=== PATIENT | male | born 1985 | race Caucasian/White ===

== ENCOUNTER → 2019-11-14 | Outpatient (REF) | payer OTHER ==
[2019-11-14 14:01] LABS: HEMOGLOBIN A1c 6.3 %
[2019-11-14 14:06] LABS: ALBUMIN 3.8 GM/DL (3.2-5.2); ALT/SGPT 45 U/L (12-78); BILIRUBIN,TOTAL 0.5 MG/DL (0.2-1.0); BLOOD UREA NITROGEN 15 MG/DL (7-18); CALCIUM LEVEL 9.8 MG/DL (8.5-10.1); CARBON DIOXIDE LEVEL 28 MEQ/L (21-32); CHLORIDE LEVEL 104 MEQ/L (98-107); CHOLESTEROL LEVEL 215 MG/DL (<200); CHOLESTEROL RISK RATIO 7.166 (<5); CREATININE FOR GFR 0.96 MG/DL (0.70-1.30); GLOMERULAR FILTRATION RATE > 60.0 (>60); GLUCOSE, FASTING 100 MG/DL (70-100); HDL CHOLESTEROL 30 MG/DL (>40); LDL CHOLESTEROL 162 MG/DL (<100); NON-HDL-C 185 MG/DL; POTASSIUM SERUM 4.2 MEQ/L (3.5-5.1); SODIUM LEVEL 140 MEQ/L (136-145); TOTAL PROTEIN 8.1 GM/DL (6.4-8.2); TRIGLYCERIDES LEVEL 116 MG/DL (<150)
== END ==
LOC: M SFHCPLAZ 11:37
PROVIDERS: ATTEND Nurse Practitioner Adult Health
DX: Z00.00 Encounter for general adult medical examination without abnormal findings (principal); Z13.220 Encounter for screening for lipoid disorders; Z83.3 Family history of diabetes mellitus

== ENCOUNTER → 2020-11-17 | Outpatient (REF) | payer OTHER ==
[2020-11-17 16:29] LABS: HEMATOCRIT 45.4 % (42.0-52.0); MEAN CORPUSCULAR HEMOGLOBIN 27.8 pg (27.0-33.0); MEAN CORPUSCULAR HGB CONC 30.8 g/dl (32.0-36.5); MEAN CORPUSCULAR VOLUME 90.1 fl (80.0-96.0); PLATELET COUNT, AUTOMATED 444 10^3/uL (150-450); RED BLOOD COUNT 5.04 10^6/uL (4.30-6.10); WHITE BLOOD COUNT 8.1 10^3/uL (4.0-10.0)
[2020-11-17 16:43] LABS: ALBUMIN 3.7 GM/DL (3.2-5.2); ALT/SGPT 47 U/L (12-78); BILIRUBIN,TOTAL 0.4 MG/DL (0.2-1.0); BLOOD UREA NITROGEN 13 MG/DL (7-18); CALCIUM LEVEL 9.3 MG/DL (8.5-10.1); CARBON DIOXIDE LEVEL 31 MEQ/L (21-32); CHLORIDE LEVEL 104 MEQ/L (98-107); CHOLESTEROL LEVEL 241 MG/DL (<200); CHOLESTEROL RISK RATIO 7.088 (<5); CREATININE FOR GFR 1.03 MG/DL (0.70-1.30); GLOMERULAR FILTRATION RATE > 60.0 (>60); GLUCOSE, FASTING 115 MG/DL (70-100); HDL CHOLESTEROL 34 MG/DL (>40); LDL CHOLESTEROL 166 MG/DL (<100); NON-HDL-C 207 MG/DL; POTASSIUM SERUM 4.4 MEQ/L (3.5-5.1); SODIUM LEVEL 140 MEQ/L (136-145); TOTAL PROTEIN 7.7 GM/DL (6.4-8.2); TRIGLYCERIDES LEVEL 203 MG/DL (<150)
[2020-11-17 17:36] LABS: HEMOGLOBIN A1c 5.7 %
== END ==
LOC: M SFHCPLAZ 10:39
PROVIDERS: ATTEND Nurse Practitioner Adult Health
DX: Z00.00 Encounter for general adult medical examination without abnormal findings (principal); Z83.3 Family history of diabetes mellitus; Z13.220 Encounter for screening for lipoid disorders

== ENCOUNTER → 2021-02-21 | Outpatient (CLI) | payer BC, OTHER ==
--- NOTE | 2021-02-22 17:38 | SLEEPCENT ---
NOCTURNAL POLYSOMNOGRAPHY DATE: 02/21/2021 ORDERED BY: GUDELIA Negro Nocturnal polysomnography was performed for evaluation of sleep physiology in this patient with a history of snoring and nonrestorative sleep. 8 hours and 30 minutes of data were reviewed. There were 148 minutes of sleep identified. Sleep latency was prolonged at 119 minutes. The patient did not achieve REM sleep. Overall sleep architecture was poor with an efficiency of only 29.4%. The electrocardiogram showed a sinus rhythm with an average heart rate of 60 beats per minute; rate range 40 to 100. EEG showed fairly normal waveforms for wake and sleep. There were 176 respiratory events identified of 10 seconds in duration or greater for an apnea-hypopnea index of 71.4. The events were both obstructive and mixed, 127 of 176 events were mixed or central in character. The events were not exclusive to sleep stage nor body posture. They were associated with oxygen desaturations into the 70s. Having clear established the presence of obstructive sleep apnea syndrome early in the night, testing was stopped shortly after 1 a.m. for the application of pressure therapy. The patient was fit with a ResMed AirFit F20 full face mask of medium size, 4 cm of water pressure were applied to the circuit, and the lights were extinguished. Throughout the remaining hours of testing, pressure titration was performed. Various pressures were attempted, but no palliative pressure was identified. A brief trial of BiLevel pressure was successful; however, the patient awoke thereafter and was unable to reestablish sleep sufficient to identify an optimal palliative pressure. IMPRESSION: Severe complex obstructive and central sleep apnea syndrome (G47.31, G47.33), apnea-hypopnea index 71.4 (127 of 176 events central and mixed). RECOMMENDATION: The patient should be encouraged to return to [facility] at his convenience for the titration of pressure therapy. Given the complex nature of the patient's apnea, it is likely that a BiLevel device and possibly a backup rate may be necessary to achieve palliative pressure.
== END ==
LOC: M SLEEP 20:00
PROVIDERS: ATTEND Physician Assistant
DX: G47.33 Obstructive sleep apnea (adult) (pediatric) (principal); G47.31 Primary central sleep apnea

== ENCOUNTER → 2021-03-17 | Outpatient (CLI) | payer BC, OTHER ==
--- NOTE | 2021-03-21 15:25 | SLEEPCENT ---
NOCTURNAL POLYSOMNOGRAPHY CPAP TITRATION DATE: 03/17/2021 ORDERED BY: GUDELIA Negro Nocturnal polysomnography was performed for the titration of pressure therapy in this patient with complex obstructive sleep apnea syndrome with apnea-hypopnea index of 71.4. For testing a ResMed AirFit F20 full face mask of large size was used, 4 cm of water pressure were applied to the circuit, and the lights were extinguished. 8 hours and 9 minutes of data were reviewed. There were 392 minutes of sleep identified. Sleep latency was mildly prolonged at 40 minutes. REM latency was mildly prolonged at 132 minutes. Sleep architecture improved with optimal pressure therapy and there were three REM cycles noted. Overall sleep efficiency was 81.5%. The electrocardiogram showed a sinus rhythm with an average heart rate of 72 beats per minute. EEG showed normal waveforms for wake and sleep. Respiratory events were fully palliated with CPAP at a pressure of 10 and some limb activity noted early in the study improved after the optimal pressure therapy was applied. Limb movement arousal index on this occasion was 4.1. IMPRESSION: Obstructive sleep apnea syndrome (G47.33). RECOMMENDATION: Nightly use of pressure therapy 10 cm of water.
== END ==
LOC: M SLEEP 20:00
PROVIDERS: ATTEND Physician Assistant
DX: G47.33 Obstructive sleep apnea (adult) (pediatric) (principal)

== ENCOUNTER → 2021-07-13 | Outpatient (REF) | payer OTHER ==
[2021-07-13 16:56] LABS: ALBUMIN 3.4 GM/DL (3.2-5.2); ALT/SGPT 34 U/L (12-78); BILIRUBIN,TOTAL 0.4 MG/DL (0.2-1.0); BLOOD UREA NITROGEN 17 MG/DL (7-18); CALCIUM LEVEL 9.1 MG/DL (8.5-10.1); CARBON DIOXIDE LEVEL 31 MEQ/L (21-32); CHLORIDE LEVEL 106 MEQ/L (98-107); CHOLESTEROL LEVEL 159 MG/DL (<200); CHOLESTEROL RISK RATIO 5.482 (<5); CREATININE FOR GFR 0.84 MG/DL (0.70-1.30); GLOMERULAR FILTRATION RATE > 60.0 (>60); GLUCOSE, FASTING 109 MG/DL (70-100); HDL CHOLESTEROL 29 MG/DL (>40); LDL CHOLESTEROL 105 MG/DL (<100); NON-HDL-C 130 MG/DL; POTASSIUM SERUM 4.7 MEQ/L (3.5-5.1); SODIUM LEVEL 141 MEQ/L (136-145); TOTAL PROTEIN 7.3 GM/DL (6.4-8.2); TRIGLYCERIDES LEVEL 125 MG/DL (<150)
== END ==
LOC: M SFHCCLAY 10:51
PROVIDERS: ATTEND Nurse Practitioner Adult Health
DX: E74.39 Other disorders of intestinal carbohydrate absorption (principal); I10 Essential (primary) hypertension; E78.2 Mixed hyperlipidemia

== ENCOUNTER → 2023-03-06 | Outpatient (REF) | payer OTHER ==
[2023-03-06 18:17] LABS: HEMOGLOBIN A1c 5.5 % (4.0-6.0)
[2023-03-06 18:24] LABS: ALBUMIN 3.8 G/DL (3.2-5.2); ALKALINE PHOSPHATASE 85 U/L (46-116); ALT/SGPT 27 U/L (7.0-40); AST/SGOT 19 U/L (<34); BILIRUBIN,TOTAL 0.4 MG/DL (0.3-1.2); BLOOD UREA NITROGEN 14 MG/DL (9-23); CALCIUM LEVEL 9.7 MG/DL (8.5-10.1); CARBON DIOXIDE LEVEL 29 MMOL/L (20-31); CHLORIDE LEVEL 103 MMOL/L (98-107); CHOLESTEROL LEVEL 206 MG/DL (<200); CHOLESTEROL RISK RATIO 6.05 (<5); CREATININE FOR GFR 0.87 MG/DL (0.70-1.30); GLOMERULAR FILTRATION RATE > 60.0 (>60); GLUCOSE, FASTING 100 MG/DL (60-100); LDL CHOLESTEROL 145.8 MG/DL (<100); POTASSIUM SERUM 5.1 MMOL/L (3.5-5.1); SODIUM LEVEL 139 MMOL/L (136-145); TOTAL PROTEIN 7.8 G/DL (5.7-8.2); TRIGLYCERIDES LEVEL 131 MG/DL (<150)
[2023-03-06 18:26] LABS: THYROID STIMULATING HORMONE 0.873 uIU/ML (0.55-4.78)
== END ==
LOC: M SFHCPLAZ 10:38
PROVIDERS: ATTEND Nurse Practitioner Adult Health
DX: I10 Essential (primary) hypertension (principal); E74.39 Other disorders of intestinal carbohydrate absorption; E78.2 Mixed hyperlipidemia; Z13.220 Encounter for screening for lipoid disorders

== ENCOUNTER → 2025-06-29 | Outpatient (REF) | payer BC ==
[2025-06-29 13:01] LABS: PLATELET COUNT, AUTOMATED 299 10^3/uL (150-450)
[2025-06-29 13:02] LABS: ALT/SGPT 44 U/L (7.0-40); AST/SGOT 24 U/L (<34); CALCIUM LEVEL 9.0 MG/DL (8.5-10.1); CARBON DIOXIDE LEVEL 27 MMOL/L (20-31); CHLORIDE LEVEL 103 MMOL/L (98-107); CHOLESTEROL LEVEL 204 MG/DL (<200); CHOLESTEROL RISK RATIO 6.16 (<5); CREATININE FOR GFR 0.81 MG/DL (0.70-1.30); GLOMERULAR FILTRATION RATE > 90.0 (>60); LDL CHOLESTEROL 138.9 MG/DL (<100); NON-HDL-C 170.9 MG/DL; POTASSIUM SERUM 4.0 MMOL/L (3.5-5.1); SODIUM LEVEL 141 MMOL/L (136-145); TRIGLYCERIDES LEVEL 160 MG/DL (<150)
[2025-06-29 13:11] LABS: ESTIMATED AVERAGE GLUCOSE 131.0 MG/DL (60-110)
== END ==
LOC: M SFHCPLAZ 07:57
PROVIDERS: ATTEND Nurse Practitioner Adult Health
DX: Z00.00 Encounter for general adult medical examination without abnormal findings (principal); E78.2 Mixed hyperlipidemia; E74.39 Other disorders of intestinal carbohydrate absorption

== ENCOUNTER → 2025-07-17 | Outpatient (CLI) | payer BC | LOC: M WUC 11:13 | PROVIDERS: ATTEND Nurse Practitioner Adult Health | DX: R06.4 Hyperventilation (principal) ==